=== PATIENT | female | born 1960 ===

== ENCOUNTER 2018-02-24 13:58 | Emergency (ER) | payer MEDICAID, OTHER ==
[2018-02-24] MEDS ORDERED: Sodium Chloride 0.9% Inh Soln (3mL) UD INH ONE (15:56)
--- NOTE | 2018-02-24 16:10 | C.PDOC ---
History Of Present Illness 57 year old female with PMHx of asthma presents to the ED c/o throat pain, couching, watery eyes, nasal congestion. Patient states she does not have any medications at home for her asthma due to lack of insurance. Patient reports she has been taking OTC clartin, and cold and flue medications. Patient denies fever, nausea, vomit, diarrhea, rash, recent travel, sick contacts. Time Seen by Provider: 02/24/18 15:42 Chief Complaint (Nursing): Cough, Cold, Congestion History Per: Patient History/Exam Limitations: no limitations Onset/Duration Of Symptoms: Days Current Symptoms Are (Timing): Still Present Location Of Pain: Throat, Sinus/es Sick Contacts (Context): None Associated Symptoms: Fever, Cough, Sputum, Sinus Drainage, Nasal Congestion Ear Symptoms: Bilateral: None Recent travel outside of the [place]: No Additional History Per: Patient Past Medical History Reviewed: Historical Data, Nursing Documentation, Vital Signs Vital Signs: Last Vital Signs Temp 97.8 F 02/24/18 14:27 Pulse 62 02/24/18 14:27 Resp 18 02/24/18 14:27 BP 122/85 02/24/18 14:27 Pulse Ox 100 02/24/18 16:12 - Medical History PMH: Asthma Surgical History: No Surg Hx Family History: States: Unknown Family Hx - Social History Hx Tobacco Use: No Hx Alcohol Use: No Hx Substance Use: No - Immunization History Hx Tetanus Toxoid Vaccination: No Hx Influenza Vaccination: No Hx Pneumococcal Vaccination: No Review Of Systems Constitutional: Negative for: Fever, Chills ENT: Positive for: Nose Discharge, Nose Congestion, Throat Pain. Negative for: Nose Pain Respiratory: Positive for: Cough, Sputum Gastrointestinal: Negative for: Nausea, Vomiting, Abdominal Pain Skin: Negative for: Rash Neurological: Negative for: Weakness, Numbness Physical Exam - Physical Exam Appears: Non-toxic, No Acute Distress Skin: Normal Color, Warm, Dry Head: Atraumatic, Normacephalic Eye(s): bilateral: Normal Inspection Ear(s): Bilateral: Normal Nose: No Discharge Oral Mucosa: Moist Throat: Normal, No Erythema, No Exudate Neck: Normal ROM, Supple Chest: Symmetrical Cardiovascular: Rhythm Regular, No Murmur Respiratory: Normal Breath Sounds, No Rales, No Rhonchi, No Wheezing Extremity: Normal ROM Neurological/Psych: Oriented x3, Normal Speech Gait: Steady ED Course And Treatment O2 Sat by Pulse Oximetry: 100 (On RA) Pulse Ox Interpretation: Normal Medical Decision Making Medical Decision Making: Plan: * Sodium chloride 3 ml INH * Tylenol 975 mg PO 1637 pt feeling much better after saline neb, with decreased coughing. d/c home with ventol. saline,,ed clinic f/u Disposition Counseled Patient/Family Regarding: Diagnosis, Need For Followup, Rx Given - Disposition Referrals: [facility] [Outside] Disposition: HOME/ ROUTINE Disposition Time: 16:38 Condition: IMPROVED Additional Instructions: Use inhaler as needed; Use nebulizer 2 times a day with saline or albuterol. Follow up in medical clinic, Drink increased fluids and avoid diary.Return to ER for any worse symptoms. Prescriptions: Albuterol 0.083% [Albuterol Sulfate 3 Ml] 3 ml IH BID #30 neb Albuterol HFA [Ventolin HFA 90 mcg/actuation (8 g)] 2 puff IH Q6 #1 inhaler Nebulizer [Erapid Nebulizer] 1 each MC BID #1 each Instructions: Upper Respiratory Infection (ED) Forms: [employer] ([place]), General Discharge Instructions - Clinical Impression Clinical Impression: Upper respiratory infection, Seasonal allergies - PA / TECHNICAL MGR / Resident Statement MD/DO has reviewed & agrees with the documentation as recorded. - Scribe Statement The provider has reviewed the documentation as recorded by the Scribe James Dugan All medical record entries made by the Scribe were at my direction and personally dictated by me. I have reviewed the chart and agree that the record accurately reflects my personal performance of the history, physical exam, medical decision making, and the department course for this patient. I have also personally directed, reviewed, and agree with the discharge instructions and disposition.
[2018-02-24 16:41] VITALS: BP 113/78; PULSE 55; RESP 16; TEMP 98.2; O2SAT 100
== END 2018-02-24 16:47 | disposition home or self-care (01) ==
LOC: C.ER 13:58
DX: J06.9 Acute upper respiratory infection, unspecified (principal); J30.2 Other seasonal allergic rhinitis